=== PATIENT | female | born 1995 | race Caucasian/White ===

== ENCOUNTER 2017-09-13 15:24 | Inpatient (IN) | payer MEDICAID, SELFPAY ==
[~2017-09-13] VITALS: Ht 165.1 cm; Wt 52.8 kg
[2017-09-13 16:09] LABS: AMPHET/METH SCREEN,URINE NEGATIVE (NEGATIVE); BARBITURATE SCREEN, URINE NEGATIVE (NEGATIVE); BENZODIAZEPINES SCREEN,URINE NEGATIVE (NEGATIVE); CANNABINOID SCREEN,URINE NEGATIVE (NEGATIVE); COCAINE SCREEN,URINE NEGATIVE (NEGATIVE); METHADONE SCREEN, URINE NEGATIVE (NEGATIVE); OPIATE SCREEN,URINE NEGATIVE (NEGATIVE)
[2017-09-13 16:20] LABS: PHENCYCLIDINE SCREEN,URINE NEGATIVE (NEGATIVE)
[2017-09-13 17:00] LABS: BASOPHILS # (AUTO) 0.04 K/uL (0.00-0.20); BASOPHILS % (AUTO) 0.4 % (0.0-2.0); EOSINOPHILS # (AUTO) 0.06 K/uL (0.00-0.70); EOSINOPHILS % (AUTO) 0.69 % (1.0-6.0); HEMATOCRIT 38.9 % (36-46); LYMPHOCYTES # (AUTO) 2.4 K/uL (1.0-4.8); LYMPHOCYTES % (AUTO) 27.4 % (22.0-44.0); MEAN CORPUSCULAR HEMOGLOBIN 30.1 pg (26.0-34.0); MEAN CORPUSCULAR HGB CONC 33.5 G/dL (31.0-37.0); MEAN CORPUSCULAR VOLUME 90 fL (80-100); MONOCYTES # (AUTO) 0.6 K/uL (0.1-1.0); MONOCYTES % (AUTO) 7.2 % (2.0-9.0); NEUTROPHILS # (AUTO) 5.7 K/uL (1.8-7.7); NEUTROPHILS % (AUTO) 64.3 % (40.0-70.0); PLATELET COUNT (AUTO) 230 K/uL (150-450); RED BLOOD CELL COUNT(AUTO) 4.33 MIL/uL (4.00-5.20); RED CELL DISTRIBUTION WIDTH 11.9 % (11.5-14.5)
[2017-09-13 17:04] LABS: ANION GAP 9 mmol/L (8-16); CALCIUM, TOTAL 9.1 mg/dL (8.8-10.5); CARBON DIOXIDE 30 mmol/L (22-29); CHLORIDE 103 mmol/L (98-107); CREATININE 0.84 mg/dL (0.60-1.30); GLOMERULAR FILTR. RATE CALC > 60 mL/min (>60); GLUCOSE,RANDOM 93 mg/dL (70-110); POTASSIUM 4.2 mmol/L (3.5-5.1); SODIUM SERUM 142 mmol/L (136-145); UREA NITROGEN, BLOOD 15 mg/dL (7-18)
[2017-09-13 17:10] LABS: ALANINE AMINOTRANSFERASE 36 U/L (12-78); ALBUMIN 3.9 g/dL (3.4-5.0); ALKALINE PHOSPHATASE 93 U/L (46-116); ASPARTATE AMINOTRANSFERASE 24 U/L (15-37); BILIRUBIN,TOTAL 0.1 mg/dL (0.1-1.0); TOTAL PROTEIN, SERUM 7.4 g/dL (6.4-8.2)
[2017-09-13] MEDS ORDERED: ZOLPIDEM TARTRATE 10 MG TABLET PO PRN (17:30)
[2017-09-13] MEDS ORDERED: HALOPERIDOL 5 MG TABLET PO PRN (17:30)
[2017-09-13] MEDS ORDERED: LORazepam 2 MG TABLET PO PRN (17:30)
[2017-09-13] MEDS: HALOPERIDOL 5 MG TABLET PO SCH (18:00)
[2017-09-13] MEDS: BENZTROPINE MESYLATE 0.5 MG TABLET PO SCH (18:09)
[2017-09-13 19:28] VITALS: BP 133/79
[2017-09-13] MEDS ORDERED: INFLUENZA VIRUS VACCINE QVS 2017-18 (3YR+)/PF 60 MCG/0.5 ML SYRINGE IM ONE (20:15)
[2017-09-14 07:15] VITALS: BP 121/79
[2017-09-14 07:47] LABS: CHOL/HDL RATIO 2.1 (3.9-5.7)
[2017-09-14 08:16] VITALS: BP 98/61
[2017-09-14] MEDS: HALOPERIDOL 5 MG TABLET PO SCH ×2 (09:45→16:20)
[2017-09-14] MEDS: BENZTROPINE MESYLATE 0.5 MG TABLET PO SCH ×2 (09:46→16:20)
[2017-09-14 16:27] VITALS: BP 105/62
[2017-09-14] MEDS ORDERED: ACETAMINOPHEN 325 MG TABLET PO PRN (17:00)
[2017-09-14] MEDS ORDERED: IBUPROFEN 400 MG TABLET PO PRN (17:00)
[2017-09-15] MEDS: BENZTROPINE MESYLATE 0.5 MG TABLET PO SCH ×2 (08:33→16:16)
[2017-09-15] MEDS: HALOPERIDOL 5 MG TABLET PO SCH ×2 (08:33→16:16)
[2017-09-15 10:11] LABS: HIV 1-2 SCREEN 4TH GEN W/RFLX Non Reactive (Non Reactive)
[2017-09-15 16:09] VITALS: BP 100/62
[2017-09-16 06:26] VITALS: BP 120/60
[2017-09-16] MEDS: BENZTROPINE MESYLATE 1 MG TABLET PO SCH ×2 (08:14→16:14)
[2017-09-16] MEDS: HALOPERIDOL 5 MG TABLET PO SCH ×2 (08:14→16:15)
[2017-09-16 08:58] VITALS: BP 104/61
[2017-09-16 16:41] VITALS: BP 106/69
[2017-09-17 06:23] VITALS: BP 103/60
[2017-09-17] MEDS: BENZTROPINE MESYLATE 1 MG TABLET PO SCH ×2 (08:05→16:31)
[2017-09-17] MEDS: HALOPERIDOL 5 MG TABLET PO SCH ×2 (08:05→16:32)
[2017-09-17 08:19] VITALS: BP 100/68
[2017-09-17] MEDS ORDERED: HALO5 PO (13:07)
[2017-09-17] MEDS ORDERED: BENZ1TAB10 PO (13:07)
[2017-09-17 16:18] VITALS: BP 109/63
[2017-09-18 07:07] VITALS: BP 112/64
[2017-09-18 08:09] VITALS: BP 109/72
[2017-09-18] MEDS: BENZTROPINE MESYLATE 1 MG TABLET PO SCH ×2 (08:55→16:12)
[2017-09-18] MEDS: HALOPERIDOL 5 MG TABLET PO SCH ×2 (08:55→16:12)
[2017-09-18 16:00] VITALS: BP 103/60
[2017-09-19 06:31] VITALS: BP 100/64
[2017-09-19] MEDS: BENZTROPINE MESYLATE 1 MG TABLET PO SCH ×2 (08:29→16:19)
[2017-09-19] MEDS: HALOPERIDOL 5 MG TABLET PO SCH ×2 (08:29→16:19)
[2017-09-19 09:32] VITALS: BP 110/75
[2017-09-19 16:09] VITALS: BP_SYST 103; BP_SYST 93; BP_DIAS 53
[2017-09-20 06:22] VITALS: BP 101/64
[2017-09-20] MEDS: BENZTROPINE MESYLATE 1 MG TABLET PO SCH ×2 (08:04→16:08)
[2017-09-20] MEDS: HALOPERIDOL 5 MG TABLET PO SCH ×2 (08:06→16:09)
[2017-09-20 10:00] VITALS: BP 102/65
[2017-09-20] MEDS: NICOTINE 14 MG/24 HOUR PATCH TD SCH (12:40)
[2017-09-20 16:12] VITALS: BP 106/60
[2017-09-21 04:24] VITALS: BP 110/62
[2017-09-21] MEDS ORDERED: HALO5 PO (07:37)
[2017-09-21] MEDS ORDERED: BENZ1TAB10 PO (07:37)
[2017-09-21] MEDS: BENZTROPINE MESYLATE 1 MG TABLET PO SCH (08:06)
[2017-09-21] MEDS: HALOPERIDOL 5 MG TABLET PO SCH (08:06)
[2017-09-21] MEDS: NICOTINE 14 MG/24 HOUR PATCH TD SCH (08:06)
[2017-09-21 08:10] VITALS: BP 103/69
== END 2017-09-21 10:35 | disposition home or self-care (01) | DRG 753 ==
LOC: EMS 15:27 → B3A 17:43
PROVIDERS: ADMIT Psychiatry & Neurology Psychiatry; ATTEND Psychiatry & Neurology Psychiatry
DX: F31.2 Bipolar disorder, current episode manic severe with psychotic features (principal); R00.0 Tachycardia, unspecified; F41.9 Anxiety disorder, unspecified; F15.90 Other stimulant use, unspecified, uncomplicated; Z28.21 Immunization not carried out because of patient refusal; Z79.899 Other long term (current) drug therapy; Z81.8 Family history of other mental and behavioral disorders; F17.200 Nicotine dependence, unspecified, uncomplicated; F19.10 Other psychoactive substance abuse, uncomplicated; Z71.51 Drug abuse counseling and surveillance of drug abuser
CPT/HCPCS: 84443; 87389; 99285; G0480